=== PATIENT | male | born 1980 | race Caucasian/White ===

== ENCOUNTER 2019-12-21 22:26 | Inpatient (IN) | payer MEDICAID, OTHER ==
[~2019-12-21] VITALS: Ht 185.4 cm; Wt 81.8 kg
[~2019-12-21 22:26] MED LIST: ARIP10TA8 PO; BENZ0.5T44 PO; DIVA-76 PO; HALO5TAB2 PO; QUET200T PO
[2019-12-21] MEDS ORDERED: CHLO100T24 PO (23:07)
[2019-12-21] MEDS ORDERED: MIRT-92 PO (23:07)
[2019-12-21] MEDS ORDERED: VENL-67 PO (23:07)
[2019-12-22] MEDS ORDERED: VANCOMYCIN HCL 1 GM/D5% WATER 200 ML IV ONE
[2019-12-22 00:30] LABS: LYMPHOCYTES # (AUTO) 1.5 K/uL (1.0-4.8); MEAN CORPUSCULAR HEMOGLOBIN 27.2 pg (26.0-34.0); MEAN CORPUSCULAR HGB CONC 32.4 G/dL (31.0-37.0); MEAN CORPUSCULAR VOLUME 84 fL (80-100); MONOCYTES % (AUTO) 11.1 % (2.0-9.0); NEUTROPHILS % (AUTO) 67.9 % (40.0-70.0); PLATELET COUNT (AUTO) 497 K/uL (150-450); RED BLOOD CELL COUNT(AUTO) 4.41 MIL/uL (4.50-5.90); RED CELL DISTRIBUTION WIDTH 14.1 % (11.5-14.5)
[2019-12-22 00:36] LABS: ANION GAP 7 mmol/L (8-16); CALCIUM, TOTAL 9.1 mg/dL (8.8-10.5); CARBON DIOXIDE 31 mmol/L (22-29); CHLORIDE 102 mmol/L (98-107); CREATININE 0.76 mg/dL (0.60-1.30); GLOMERULAR FILTR. RATE CALC > 60 mL/min (>60); GLUCOSE,RANDOM 95 mg/dL (70-110); POTASSIUM 3.6 mmol/L (3.5-5.1); SODIUM SERUM 140 mmol/L (136-145); UREA NITROGEN, BLOOD 8 mg/dL (7-18)
[2019-12-22] MEDS ORDERED: 0.9% SODIUM CHLORIDE 10 ML SYRINGE IVP PRN (00:45)
[2019-12-22] MEDS ORDERED: ACETAMINOPHEN 325 MG TABLET PO PRN ×2 (00:45→11:45)
[2019-12-22] MEDS ORDERED: ONDANSETRON HCL 4 MG/2 ML VIAL IVP PRN ×2 (00:45→11:45)
[2019-12-22 01:30] VITALS: BP 124/62
[2019-12-22 06:20] VITALS: BP_SYST 113; BP_DIAS 53; BP_DIAS 69
[2019-12-22 08:59] VITALS: BP 130/78
[2019-12-22] MEDS ORDERED: HYDROCODONE/ACETAMINOPHEN 5-325 MG TABLET PO PRN (11:45)
[2019-12-22] MEDS ORDERED: MORPHINE SULFATE 2 MG/ML SYRINGE IVP PRN (11:45)
[2019-12-22] MEDS ORDERED: MAGNESIUM HYDROXIDE SUSPENSION 30 ML UDCUP PO PRN (11:45)
[2019-12-22] MEDS ORDERED: BISACODYL 10 MG RECTAL RECTAL SUPPOSITORY PR PRN (11:45)
[2019-12-22] MEDS: VANCOMYCIN HCL 1 GM/D5% WATER 200 ML IV SCH ×2 (12:51→15:02)
[2019-12-22] MEDS ORDERED: SODIUM CHLORIDE 0.9% 250 ML IV ONE (12:52)
[2019-12-22] MEDS: OLANZapine 10 MG TABLET PO SCH ×2 (15:18→20:25)
[2019-12-22] MEDS: HEPARIN SODIUM,PORCINE 5,000 UNITS/ML VIAL SQ SCH (15:22)
[2019-12-22 16:11] VITALS: BP 125/79
[2019-12-22 19:45] VITALS: BP 111/64
[2019-12-22] MEDS: DOCUSATE SODIUM 100 MG CAPSULE PO SCH (20:22)
[2019-12-22] MEDS: ChlorproMAZINE HCL 100 MG TABLET PO SCH (20:22)
[2019-12-22] MEDS: VENLAFAXINE HCL 75 MG ER CAPSULE PO SCH (20:22)
[2019-12-22] MEDS: ZOLPIDEM TARTRATE 5 MG TABLET PO PRN (20:26)
[2019-12-22] MEDS ORDERED: MIRTAZAPINE 15 MG TABLET PO SCH (21:00)
[2019-12-22] MEDS: VANCOMYCIN HCL 1.5 GM in DEXTROSE 5%-WATER 250 ML IV SCH (23:43)
[2019-12-23] MEDS: HEPARIN SODIUM,PORCINE 5,000 UNITS/ML VIAL SQ SCH ×4 (00:29→23:47)
[2019-12-23 04:00] VITALS: BP 132/82
[2019-12-23 07:46] LABS: ANION GAP -2 mmol/L (8-16); CALCIUM, TOTAL 8.6 mg/dL (8.8-10.5); CARBON DIOXIDE 33 mmol/L (22-29); CHLORIDE 103 mmol/L (98-107); GLOMERULAR FILTR. RATE CALC > 60 mL/min (>60); GLUCOSE,RANDOM 71 mg/dL (70-110); POTASSIUM 3.4 mmol/L (3.5-5.1); SODIUM SERUM 134 mmol/L (136-145); UREA NITROGEN, BLOOD 7 mg/dL (7-18)
[2019-12-23] MEDS: ChlorproMAZINE HCL 100 MG TABLET PO SCH ×2 (08:08→20:10)
[2019-12-23] MEDS: OLANZapine 10 MG TABLET PO SCH (08:08)
[2019-12-23] MEDS: DOCUSATE SODIUM 100 MG CAPSULE PO SCH ×2 (08:09→20:10)
[2019-12-23] MEDS: VANCOMYCIN HCL 1.5 GM in DEXTROSE 5%-WATER 250 ML IV SCH ×3 (08:09→23:48)
[2019-12-23] MEDS: PANTOPRAZOLE SODIUM 40 MG DR TABLET PO SCH (08:09)
[2019-12-23 08:30] VITALS: BP 155/90
[2019-12-23] MEDS ORDERED: POTASSIUM CHL 10 MEQ/WATER 50 ML IV PRN (11:00)
[2019-12-23] MEDS ORDERED: POTASSIUM CHLORIDE 20 MEQ ER TABLET PO PRN (11:00)
[2019-12-23] MEDS ORDERED: HALOPERIDOL LACTATE 5 MG/ML VIAL IM ONE (11:45)
[2019-12-23] MEDS ORDERED: LORazepam 2 MG/ML VIAL IM ONE (11:45)
[2019-12-23] MEDS ORDERED: DiphenhydrAMINE HCL 50 MG/ML VIAL IM ONE (11:45)
[2019-12-23 12:02] VITALS: BP 144/90
[2019-12-23 15:44] VITALS: BP 130/96
[2019-12-23] MEDS: QUEtiapine FUMARATE 25 MG TABLET PO PRN ×2 (17:12→23:47)
[2019-12-23 19:57] VITALS: BP 124/76
[2019-12-23] MEDS: MIRTAZAPINE 15 MG TABLET PO SCH (20:10)
[2019-12-23] MEDS: VENLAFAXINE HCL 75 MG ER CAPSULE PO SCH (20:10)
[2019-12-23] MEDS: OLANZapine 7.5 MG TABLET PO SCH (20:11)
[2019-12-24] MEDS: ZOLPIDEM TARTRATE 5 MG TABLET PO PRN (00:09)
[2019-12-24 07:00] VITALS: BP 120/73
[2019-12-24] MEDS: VANCOMYCIN HCL 1.5 GM in DEXTROSE 5%-WATER 250 ML IV SCH (08:06)
[2019-12-24] MEDS: PANTOPRAZOLE SODIUM 40 MG DR TABLET PO SCH (08:06)
[2019-12-24] MEDS: OLANZapine 7.5 MG TABLET PO SCH (08:06)
[2019-12-24] MEDS: DOCUSATE SODIUM 100 MG CAPSULE PO SCH (08:06)
[2019-12-24] MEDS: ChlorproMAZINE HCL 100 MG TABLET PO SCH (08:06)
[2019-12-24] MEDS: HEPARIN SODIUM,PORCINE 5,000 UNITS/ML VIAL SQ SCH ×2 (08:15→16:41)
[2019-12-24 08:29] LABS: ANION GAP 4 mmol/L (8-16); CARBON DIOXIDE 33 mmol/L (22-29); CHLORIDE 102 mmol/L (98-107); GLOMERULAR FILTR. RATE CALC > 60 mL/min (>60); GLUCOSE,RANDOM 93 mg/dL (70-110); POTASSIUM 4.5 mmol/L (3.5-5.1); SODIUM SERUM 139 mmol/L (136-145); UREA NITROGEN, BLOOD 11 mg/dL (7-18); VANCOMYCIN,RANDOM 21.8 mcg/mL (25.0-50.0)
[2019-12-24] MEDS: QUEtiapine FUMARATE 25 MG TABLET PO PRN ×2 (09:55→17:23)
[2019-12-24] MEDS ORDERED: HALOPERIDOL LACTATE 5 MG/ML VIAL IM ONE ×2 (11:30→19:15)
[2019-12-24] MEDS ORDERED: LORazepam 2 MG/ML VIAL IM ONE ×2 (11:30→19:15)
[2019-12-24] MEDS ORDERED: DiphenhydrAMINE HCL 50 MG/ML VIAL IM ONE ×2 (11:30→19:15)
[2019-12-24 20:51] VITALS: BP 116/59
[2019-12-25] MEDS: DOCUSATE SODIUM 100 MG CAPSULE PO SCH ×3 (00:24→23:25)
[2019-12-25] MEDS: VENLAFAXINE HCL 75 MG ER CAPSULE PO SCH ×2 (00:25→23:26)
[2019-12-25] MEDS: MIRTAZAPINE 15 MG TABLET PO SCH ×2 (00:25→23:25)
[2019-12-25] MEDS: HEPARIN SODIUM,PORCINE 5,000 UNITS/ML VIAL SQ SCH ×4 (00:25→23:26)
[2019-12-25] MEDS: ChlorproMAZINE HCL 100 MG TABLET PO SCH ×3 (00:25→23:26)
[2019-12-25] MEDS: OLANZapine 7.5 MG TABLET PO SCH ×3 (00:25→23:26)
[2019-12-25] MEDS ORDERED: SODIUM CHLORIDE 0.9% 500 ML IV ONE (00:30)
[2019-12-25] MEDS: VANCOMYCIN HCL 1 GM/D5% WATER 200 ML IV SCH ×2 (00:42→08:13)
[2019-12-25] MEDS: QUEtiapine FUMARATE 25 MG TABLET PO PRN (00:47)
[2019-12-25 06:14] VITALS: BP 125/79
[2019-12-25 07:25] LABS: ANION GAP 6 mmol/L (8-16); CALCIUM, TOTAL 8.9 mg/dL (8.8-10.5); CARBON DIOXIDE 32 mmol/L (22-29); CHLORIDE 101 mmol/L (98-107); CREATININE 1.03 mg/dL (0.60-1.30); GLOMERULAR FILTR. RATE CALC > 60 mL/min (>60); GLUCOSE,RANDOM 70 mg/dL (70-110); POTASSIUM 4.6 mmol/L (3.5-5.1); SODIUM SERUM 139 mmol/L (136-145); UREA NITROGEN, BLOOD 17 mg/dL (7-18)
[2019-12-25] MEDS: PANTOPRAZOLE SODIUM 40 MG DR TABLET PO SCH (08:14)
[2019-12-25] MEDS ORDERED: LORazepam 2 MG/ML VIAL IM ONE ×2 (09:00→17:15)
[2019-12-25] MEDS ORDERED: DiphenhydrAMINE HCL 50 MG/ML VIAL IM ONE ×2 (09:00→17:15)
[2019-12-25] MEDS ORDERED: HALOPERIDOL LACTATE 5 MG/ML VIAL IM ONE ×2 (09:00→17:15)
[2019-12-25] MEDS: SULFAMETHOX/TRIMETH DS 800-160 MG/TABLET PO SCH ×2 (11:42→23:25)
[2019-12-25] MEDS: LORazepam 1 MG TABLET PO PRN (11:42)
[2019-12-25] MEDS: CEPHALEXIN MONOHYDRATE 500 MG CAPSULE PO SCH ×3 (11:42→23:26)
[2019-12-25 15:10] VITALS: BP 122/76
[2019-12-25 21:35] VITALS: BP 118/77
[2019-12-26] MEDS: LORazepam 1 MG TABLET PO PRN ×2 (03:30→15:49)
[2019-12-26] MEDS: QUEtiapine FUMARATE 25 MG TABLET PO PRN ×2 (03:30→21:46)
[2019-12-26 05:21] VITALS: BP 115/67
[2019-12-26] MEDS: ChlorproMAZINE HCL 100 MG TABLET PO SCH ×2 (08:13→21:46)
[2019-12-26] MEDS: HEPARIN SODIUM,PORCINE 5,000 UNITS/ML VIAL SQ SCH ×2 (08:13→15:49)
[2019-12-26] MEDS: SULFAMETHOX/TRIMETH DS 800-160 MG/TABLET PO SCH ×2 (08:14→21:46)
[2019-12-26] MEDS: CEPHALEXIN MONOHYDRATE 500 MG CAPSULE PO SCH ×2 (08:14→15:49)
[2019-12-26] MEDS: OLANZapine 7.5 MG TABLET PO SCH ×2 (08:14→21:46)
[2019-12-26] MEDS: PANTOPRAZOLE SODIUM 40 MG DR TABLET PO SCH (08:14)
[2019-12-26] MEDS: DOCUSATE SODIUM 100 MG CAPSULE PO SCH ×2 (08:14→21:00)
[2019-12-26 08:35] VITALS: BP 141/96
[2019-12-26 15:38] VITALS: BP 132/86
[2019-12-26] MEDS ORDERED: LORazepam 2 MG/ML VIAL ONE (16:27)
[2019-12-26] MEDS ORDERED: HALOPERIDOL LACTATE 5 MG/ML VIAL ONE (16:27)
[2019-12-26] MEDS ORDERED: DiphenhydrAMINE HCL 50 MG/ML VIAL ONE (16:28)
[2019-12-26] MEDS ORDERED: LORazepam 2 MG/ML VIAL IM ONE (16:30)
[2019-12-26] MEDS ORDERED: HALOPERIDOL LACTATE 5 MG/ML VIAL IM ONE (16:30)
[2019-12-26] MEDS ORDERED: DiphenhydrAMINE HCL 50 MG/ML VIAL IM ONE (16:30)
[2019-12-26 19:21] VITALS: BP 113/75
[2019-12-26] MEDS: VENLAFAXINE HCL 75 MG ER CAPSULE PO SCH (21:46)
[2019-12-26] MEDS: MIRTAZAPINE 15 MG TABLET PO SCH (21:47)
[2019-12-27] MEDS: CEPHALEXIN MONOHYDRATE 500 MG CAPSULE PO SCH ×3 (01:02→16:59)
[2019-12-27] MEDS: HEPARIN SODIUM,PORCINE 5,000 UNITS/ML VIAL SQ SCH ×3 (01:02→16:59)
[2019-12-27 05:35] VITALS: BP 123/83
[2019-12-27 07:24] VITALS: BP 119/77
[2019-12-27] MEDS: ChlorproMAZINE HCL 100 MG TABLET PO SCH ×2 (08:06→20:39)
[2019-12-27] MEDS: SULFAMETHOX/TRIMETH DS 800-160 MG/TABLET PO SCH ×2 (08:06→20:39)
[2019-12-27] MEDS: PANTOPRAZOLE SODIUM 40 MG DR TABLET PO SCH (08:06)
[2019-12-27] MEDS: OLANZapine 7.5 MG TABLET PO SCH ×2 (08:06→20:39)
[2019-12-27] MEDS: DOCUSATE SODIUM 100 MG CAPSULE PO SCH ×2 (08:07→20:39)
[2019-12-27 08:30] VITALS: BP 130/70
[2019-12-27 12:00] VITALS: BP 126/69
[2019-12-27 15:23] VITALS: BP 120/83
[2019-12-27] MEDS ORDERED: OLAN7.5T2 PO (17:42)
[2019-12-27] MEDS ORDERED: CEPH-582 PO (17:42)
[2019-12-27] MEDS ORDERED: BACTDSB PO (17:42)
[2019-12-27 20:29] VITALS: BP 128/86
[2019-12-27] MEDS: MIRTAZAPINE 15 MG TABLET PO SCH (20:39)
[2019-12-27] MEDS: VENLAFAXINE HCL 75 MG ER CAPSULE PO SCH (20:39)
[2019-12-28] MEDS: HEPARIN SODIUM,PORCINE 5,000 UNITS/ML VIAL SQ SCH ×2 (00:19→08:08)
[2019-12-28] MEDS: CEPHALEXIN MONOHYDRATE 500 MG CAPSULE PO SCH ×2 (00:19→08:06)
[2019-12-28 05:26] VITALS: BP 126/82
[2019-12-28] MEDS: SULFAMETHOX/TRIMETH DS 800-160 MG/TABLET PO SCH (08:07)
[2019-12-28] MEDS: DOCUSATE SODIUM 100 MG CAPSULE PO SCH (08:07)
[2019-12-28] MEDS: OLANZapine 7.5 MG TABLET PO SCH (08:07)
[2019-12-28] MEDS: PANTOPRAZOLE SODIUM 40 MG DR TABLET PO SCH (08:07)
[2019-12-28] MEDS: ChlorproMAZINE HCL 100 MG TABLET PO SCH (08:07)
[2019-12-28 08:34] VITALS: BP 118/72
== END 2019-12-28 10:35 | DRG 603 ==
LOC: EMS 22:26 → 6S 12-22 00:36
PROVIDERS: ADMIT Hospitalist; ATTEND Hospitalist
DX: L03.115 Cellulitis of right lower limb (principal); E87.6 Hypokalemia; F19.10 Other psychoactive substance abuse, uncomplicated; F25.9 Schizoaffective disorder, unspecified; F41.9 Anxiety disorder, unspecified; J40 Bronchitis, not specified as acute or chronic; F10.10 Alcohol abuse, uncomplicated; Y90.9 Presence of alcohol in blood, level not specified; J02.0 Streptococcal pharyngitis; F17.210 Nicotine dependence, cigarettes, uncomplicated; F15.90 Other stimulant use, unspecified, uncomplicated; Z79.899 Other long term (current) drug therapy
CPT/HCPCS: 83605; 84132; 87040; 93971; 96365; J1200; J1630; J1644; J2060; J3370; J7040; J7050; J7060